=== PATIENT | male | born 1985 | race Asian ===

== ENCOUNTER 2019-08-23 22:04 | Emergency (ER) | payer OTHER ==
[~2019-08-23] VITALS: Ht 167.6 cm; Wt 68.0 kg
--- NOTE | 2019-08-23 22:08 | NUR ---
EKG AT BEDSIDE.
--- NOTE | 2019-08-23 22:08 | NUR ---
PT BIBFRIEND C/O NUMBNESS ON BILATERAL FEET STARTING AT 1800, RADIATING UPWARD. PT CURRENTLY C/O CHEST NUMBNESS RADIATING TO L ARM AND FOREHEAD NUMBNESS. PT AXO4. RESPIRATIONS EVEN AND UNLABORED. PT PUT ON THE PHOTO COLORER AND PULSE OX.
--- NOTE | 2019-08-23 22:14 | NUR ---
18G RAC IV STARTED, BLOOD DRAWN AND SENT TO LAB.
[2019-08-23 22:23] LABS: BASOPHILS % (AUTO) 0.5 % (0.0-2.0); EOSINOPHILS % (AUTO) 1.4 % (0.0-6.0); HEMATOCRIT 46 % (39-51); HEMOGLOBIN 15.7 g/dL (13.5-17.5); LYMPHOCYTES # (AUTO) 1.9 /CMM (0.8-4.8); LYMPHOCYTES % (AUTO) 32.6 % (20.0-44.0); MEAN CORPUSCULAR HGB CONC 34 g/dl (31.0-36.0); MEAN CORPUSCULAR VOLUME 83 fL (80-96); MONOCYTES # (AUTO) 0.5 /CMM (0.1-1.30); MONOCYTES % (AUTO) 8.1 % (2.0-12.0); NEUTROPHILS # (AUTO) 3.4 /CMM (1.8-8.9); NEUTROPHILS % (AUTO) 57.4 % (43.0-81.0); PLATELET COUNT (AUTO) 221 /CMM (150-450); RED BLOOD CELL COUNT(AUTO) 5.59 MIL/uL (4.5-6.0); WHITE BLOOD COUNT (AUTO) 5.8 K/uL (4.3-11.0)
[2019-08-23 22:31] LABS: CALCIUM, SERUM 8.4 mg/dL (8.5-10.1); CARBON DIOXIDE 32 mmol/L (21-32); CHLORIDE 103 mmol/L (98-107); CREATININE 1.3 mg/dL (0.6-1.3); GLUCOSE 104 mg/dL (74-106); POTASSIUM 3.7 mmol/L (3.5-5.1); SODIUM SERUM 142 mmol/L (136-145); UREA NITROGEN, BLOOD 19 mg/dL (7-18)
--- NOTE | 2019-08-23 23:30 | NUR ---
PT COMPLAINING OF NUMBNESS IN CHEST AND ABDOMINAL AREA. ER MD AWARE.
[2019-08-23 23:52] VITALS: BP 128/70
--- NOTE | 2019-08-23 23:52 | NUR ---
IV removed. Catheter intact and site benign. Pressure and 4x4 applied to site. No bleeding noted.Patient discharged to home in stable condition. Written and verbal after care instructions given. Patient verbalizes understanding of instruction.
== END 2019-08-23 23:53 | disposition home or self-care (01) ==
LOC: ER 22:07
DX: R20.2 Paresthesia of skin (principal); R07.89 Other chest pain; F10.10 Alcohol abuse, uncomplicated; Y90.9 Presence of alcohol in blood, level not specified
CPT/HCPCS: 36415; 71045-TC; 80048-TC; 84484-TC; 85025-TC

== ENCOUNTER 2020-07-09 11:25 | Outpatient (CLI) | payer OTHER | END 2020-07-09 23:59 | disposition home or self-care (01) | LOC: LAB 11:25 | PROVIDERS: ATTEND Nurse Practitioner Acute Care | DX: U07.1 COVID-19 (principal); J12.89 Other viral pneumonia | CPT/HCPCS: C9803; U0003 ==

== ENCOUNTER 2020-07-16 11:18 | Outpatient (CLI) | payer OTHER | END 2020-07-16 23:59 | disposition home or self-care (01) | LOC: LAB 11:18 | PROVIDERS: ATTEND Nurse Practitioner Acute Care | DX: U07.1 COVID-19 (principal); J12.89 Other viral pneumonia | CPT/HCPCS: C9803; U0003 ==

== ENCOUNTER 2021-03-12 13:05 | Emergency (ER) | payer BC, OTHER ==
[~2021-03-12] VITALS: Ht 167.6 cm; Wt 78.5 kg
--- NOTE | 2021-03-12 13:14 | NUR ---
BIBS FROM HOME TO ER BED 5. AAXO4. NOT IN RESP DISTRESS. AMBULATORY. CAME IN FOR LLQ ABD PAIN X 2 MONTH WORSE SINCE LAST NIGHT. PT REPORTS THAT HE HAS ALSO BEEN FEELING THAT HE NEEDS TO EMPTY HIS BOWEL OFTEN. WITH EPISODE OF BLOODY STOOL. PT ALSO IS REPORTING NAUSE WHICH STARTED A FEW DAYS. MD WAS AT THE BEDSIDE FOR EVAL. ORDERS RECEIVED, NOTED AND CARRIED OUT. IV LINE ESTABLISHED INTHE R AC 18G, BLOOD DRAWN AND GIVEN TO [facility] AT BEDSIDE.
[2021-03-12 13:26] LABS: BASOPHILS % (AUTO) 0.7 % (0.0-2.0); EOSINOPHILS % (AUTO) 2.1 % (0.0-6.0); HEMATOCRIT 48 % (39-51); HEMOGLOBIN 16.1 g/dL (13.5-17.5); LYMPHOCYTES # (AUTO) 1.4 /CMM (0.8-4.8); LYMPHOCYTES % (AUTO) 26.7 % (20.0-44.0); MEAN CORPUSCULAR HGB CONC 34 g/dl (31.0-36.0); MEAN CORPUSCULAR VOLUME 85 fL (80-96); MONOCYTES # (AUTO) 0.5 /CMM (0.1-1.30); MONOCYTES % (AUTO) 9.3 % (2.0-12.0); NEUTROPHILS # (AUTO) 3.1 /CMM (1.8-8.9); NEUTROPHILS % (AUTO) 61.2 % (43.0-81.0); PLATELET COUNT (AUTO) 220 /CMM (150-450); RED BLOOD CELL COUNT(AUTO) 5.62 MIL/uL (4.5-6.0); WHITE BLOOD COUNT (AUTO) 5.1 K/uL (4.3-11.0)
[2021-03-12 13:31] LABS: CALCIUM, SERUM 8.7 mg/dL (8.5-10.1); CREATININE 0.8 mg/dL (0.6-1.3); POTASSIUM 3.7 mmol/L (3.5-5.1)
[2021-03-12 13:37] LABS: BILIRUBIN,DIRECT 0.1 mg/dL (0.0-0.2); BILIRUBIN,TOTAL 0.6 mg/dL (0.2-1.0)
[2021-03-12] MEDS ORDERED: DICY10CA37 PO (13:43)
[2021-03-12] MEDS ORDERED: IV NS 0.9% 250 ML IV ONE (13:52)
[2021-03-12] MEDS ORDERED: IOHEXOL-300 100 ML VIAL IV ONE (13:52)
[2021-03-12] MEDS ORDERED: CT SWABBABLE VALVE TRANS SET 1 EA INFUS.SET MC ONE (13:52)
--- NOTE | 2021-03-12 14:05 | NUR ---
BACK FROM CT
[2021-03-12] MEDS ORDERED: AMOX/CLAVULANATE 875 MG TABLET PO ONE (15:00)
--- NOTE | 2021-03-12 15:01 | NUR ---
CALLED DR. JEFFERSON. [phone] DANTE OROSCO [phone] OPTION 1 LEFT MSG.
[2021-03-12] MEDS ORDERED: LEVO500T90 PO (15:28)
[2021-03-12] MEDS ORDERED: METR500T PO (15:28)
[2021-03-12] MEDS ORDERED: LEVOFLOXACIN (250MG) 250 MG TABLET PO ONE (15:30)
[2021-03-12] MEDS ORDERED: METRONIDAZOLE 500 MG TABLET PO ONE (15:30)
[2021-03-12] MEDS ORDERED: LEVOFLOXACIN (500MG) 500 MG TABLET ONE (15:31)
[2021-03-12] MEDS ORDERED: METRONIDAZOLE 500 MG TABLET ONE (15:31)
--- NOTE | 2021-03-12 15:41 | NUR ---
Patient discharged to home in stable condition. Written and verbal after care instructions given. Patient verbalizes understanding of instruction.IV removed. Catheter intact and site benign. Pressure and 4x4 applied to site. No bleeding noted. Pt ambulatory with a steady gait
[2021-03-12 15:42] VITALS: BP 143/78
== END 2021-03-12 15:43 | disposition home or self-care (01) ==
LOC: ER 13:10
DX: K52.9 Noninfective gastroenteritis and colitis, unspecified (principal); F41.9 Anxiety disorder, unspecified; F43.10 Post-traumatic stress disorder, unspecified; Z79.899 Other long term (current) drug therapy
CPT/HCPCS: 36415; 74177; 80048; 80076; 83690; 85025; 85730; 99285; J7050; Q9967